=== PATIENT | female | born 1970 | race African-American/Black ===

== ENCOUNTER 2017-11-19 20:27 | Emergency (ER) | payer BC ==
[~2017-11-19] VITALS: Ht 167.6 cm; Wt 73.9 kg
[~2017-11-19 20:27] MED LIST: AMOX-427 PO
--- NOTE | 2017-11-19 20:49 | NUR ---
DR JENNA DAVALOS MD AT BEDSIDE FOR MSE.
--- NOTE | 2017-11-19 21:04 | NUR ---
LAB AT BEDSIDE FOR BLOOD DRAW.
--- NOTE | 2017-11-19 21:04 | NUR ---
RADIOLOGY AT BEDSIDE FOR XRAY.
[2017-11-19 21:25] LABS: BASOPHILS % (AUTO) 0.3 % (0.0-2.0); EOSINOPHILS # (AUTO) 0.1 K/uL (0.0-0.7); EOSINOPHILS % (AUTO) 1.4 % (0.0-7.0); HEMATOCRIT 37.8 % (31.2-41.9); HEMOGLOBIN 12.3 g/dL (10.9-14.3); LYMPHOCYTES # (AUTO) 1.7 K/uL (20.0-40.0); LYMPHOCYTES % (AUTO) 18.9 % (20.5-51.5); MEAN CORPUSCULAR HEMOGLOBIN 22.8 uug (24.7-32.8); MEAN CORPUSCULAR HGB CONC 33 g/dL (32.3-35.6); MEAN CORPUSCULAR VOLUME 70.1 fL (75.5-95.3); MONOCYTES # (AUTO) 0.6 K/uL (2.0-10.0); MONOCYTES % (AUTO) 6.9 % (0.0-11.0); NEUTROPHILS # (AUTO) 6.5 K/uL (1.8-8.9); NEUTROPHILS % (AUTO) 72.5 % (38.5-71.5); PLATELET COUNT (AUTO) 278 K/uL (179-408); WHITE BLOOD COUNT (AUTO) 8.9 K/uL (3.8-11.8)
[2017-11-19 21:32] LABS: CREATININE 0.9 mg/dL (0.6-1.3); POTASSIUM 3.9 mmol/L (3.5-5.1)
[2017-11-19 21:49] LABS: BILIRUBIN,DIRECT 0.1 mg/dL (0.0-0.2); BILIRUBIN,TOTAL 0.3 mg/dL (0.2-1.0)
[2017-11-19] MEDS ORDERED: METOCLOPRAMIDE HCL 10 MG/2 ML VIAL IV ONE (22:00)
[2017-11-19] MEDS ORDERED: KETOROLAC TROMETHAMINE 30 MG INJ IVP ONE (22:00)
[2017-11-19] MEDS ORDERED: KETOROLAC TROMETHAMINE 30 MG INJ ONE (22:04)
[2017-11-19] MEDS ORDERED: METOCLOPRAMIDE HCL 10 MG/2 ML VIAL ONE (22:04)
--- NOTE | 2017-11-19 22:08 | NUR ---
PT TAKEN TO RADIOLOGY FOR CT. NO ACUTE DISTRESS NOTED.
--- NOTE | 2017-11-20 00:03 | NUR ---
Patient discharged to home in stable conditon. Written and verbal after care instructions given. Patient verbalizes understanding of instructions. IV removed, w/ catheter intact. Pressure applied. No bleeding noted at site. Pt took all personal belongings, no distress noted.
[2017-11-20 00:06] VITALS: BP 122/76
== END 2017-11-20 00:07 | disposition home or self-care (01) ==
LOC: ER 20:28
DX: K85.90 Acute pancreatitis without necrosis or infection, unspecified (principal); D25.9 Leiomyoma of uterus, unspecified; N20.0 Calculus of kidney; Z90.49 Acquired absence of other specified parts of digestive tract
CPT/HCPCS: 36415; 70030-TC; 71045; 83605; 83690; 84703; 85025; 85730; 87040; 93005; A4663; J1885; J2765